=== PATIENT | female | born 1980 | race Hispanic/Latino ===

== ENCOUNTER 2020-01-29 12:05 | Emergency (ER) | payer BC ==
--- NOTE | 2020-01-29 13:59 | ER ---
Nurse's Notes [facility] Name: Jeny Boone Age: 39 yrs Sex: Female : 1980 Arrival Date: 01/29/2020 Time: 12:12 Bed 25 Private MD: Diagnosis: Cough;Myalgia;Malaise and fatigue Presentation: 01/28 12:35 Chief complaint: Patient states: Headaches, body aches, vomiting, diarrhea x at least a ca1 week. Step daughter tested positive for Covid yesterday. She came to the house Friday. Denies fever, SOB and cough. Coronavirus screen: Patient denies a cough. Patient denies shortness of breath or difficulty breathing. Patient denies measured and/or subjective temperature greater than 100.4F prior to today's visit. Patient denies travel on a cruise ship or to a country the [facility] currently lists as an affected area. Patient reports contact with known and/or suspected case of COVID-19. Surgical mask in place, instructed to keep at all times and distance self from others in the lobby. Verbalized understanding. Ebola Screen: Patient negative for fever greater than or equal to 101.5 degrees Fahrenheit, and additional compatible Ebola Virus Disease symptoms Patient denies exposure to infectious person. Patient denies travel to an Ebola-affected area in the 21 days before illness onset. No symptoms or risks identified at this time. Initial Sepsis Screen: Does the patient meet any 2 criteria? No. Patient's initial sepsis screen is negative. Does the patient have a suspected source of infection? No. Patient's initial sepsis screen is negative. Risk Assessment: Do you want to hurt yourself or someone else? Patient reports no desire to harm self or others. Onset of symptoms was January 29, 2020. 12:35 Method Of Arrival: Ambulatory ca1 12:35 Acuity: SVITLANA 4 ca1 Triage Assessment: 14:16 General: Appears in no apparent distress. Behavior is calm, cooperative. iw BODY SPECIALIST: 12:39 LMP 01/28/2020 ca1 Historical: - Allergies: 12:39 No Known Allergies; ca1 - PMHx: 12:39 Hypertension; Depression; ca1 - PSHx: 12:39 Appendectomy; ca1 - Immunization history:: Adult Immunizations up to date. - Social history:: Smoking status: Reported history of juuling and/or vaping. - Family history:: not pertinent. - Hospitalizations: : No recent hospitalization is reported. Screenin:16 Abuse screen: Denies threats or abuse. Denies injuries from another. Nutritional iw screening: No deficits noted. Tuberculosis screening: No symptoms or risk factors identified. Fall Risk None identified. Assessment: 14:00 General: Appears in no apparent distress. comfortable, Behavior is calm, cooperative. iw Pain: Denies pain. Neuro: Level of Consciousness is awake, alert, obeys commands, Oriented to person, place, time, situation, Moves all extremities. Full function. Cardiovascular: Respiratory: Respiratory effort is even, unlabored. Derm: Skin is intact, is healthy with good turgor. Musculoskeletal: Range of motion: intact in all extremities. Vital Signs: 12:35 BP 140 / 92; Pulse 85; Resp 15 S; Temp 97.5(TE); Pulse Ox 98% on R/A; Weight 83.91 kg ca1 (R); Height 5 ft. 5 in. (165.10 cm) (R); 12:35 Body Mass Index 30.79 (83.91 kg, 165.10 cm) ca1 ED Course: 12:12 Patient arrived in ED. ag5 12:38 Triage completed. ca1 12:39 Arm band placed on right wrist. ca1 13:22 Satnam Coats MD is Attending Physician. rn 14:00 Patient has correct armband on for positive identification. iw 14:16 No provider procedures requiring assistance completed. Patient did not have IV access iw during this emergency room visit. 14:17 Elena Mcmahon RN is Primary Nurse. iw Administered Medications: No medications were administered Outcome: 13:58 Discharge ordered by . rn 14:16 Discharged to home ambulatory, with family. iw 14:16 Condition: good 14:16 Discharge instructions given to patient, Following a medical screening exam, the patient was provided information regarding alternative care sites and resources available per registration personnel. 14:17 Patient left the ED. iw Signatures: Elena Mcmahon RN RN iw Satnam Coats MD MD rn Acob, Cheryl, RN RN ca1 Kolby Castañeda ag5
--- NOTE | 2020-01-29 13:59 | EDPHYS ---
Physician Documentation [facility] Name: Jeny Boone Age: 39 yrs Sex: Female : 1980 Arrival Date: 01/29/2020 Time: 12:12 Bed 25 Private MD: ED Physician Satnam Coats HPI: 01/28 13:53 This 39 yrs old Female presents to ER via Ambulatory with complaints of R/O rn COVID. 13:53 Reports + exposure to someone who has tested + for COVID recently, reports she is rn experiencing headache, fatigue, muscle aches, but not sure if related to stress. No fever. No sob.. Severity of symptoms: At their worst the symptoms were mild in the emergency department the symptoms are unchanged. The patient has not experienced similar symptoms in the past. The patient has not recently seen a physician. CARDIOVASCULAR DISEASE SPECIALIST: 12:39 LMP 01/28/2020 ca1 Historical: - Allergies: 12:39 No Known Allergies; ca1 - PMHx: 12:39 Hypertension; Depression; ca1 - PSHx: 12:39 Appendectomy; ca1 - Immunization history:: Adult Immunizations up to date. - Social history:: Smoking status: Reported history of juuling and/or vaping. - Family history:: not pertinent. - Hospitalizations: : No recent hospitalization is reported. ROS: 13:53 Constitutional: Negative for fever, chills, and weight loss, Eyes: Negative for injury, rn pain, redness, and discharge, Neck: Negative for injury, pain, and swelling, Cardiovascular: Negative for chest pain, palpitations, and edema, Respiratory: Negative for shortness of breath, wheezing, and pleuritic chest pain, Abdomen/GI: Negative for abdominal pain, and constipation, MS/Extremity: Negative for injury and deformity, Skin: Negative for injury, rash, and discoloration, Neuro: Negative for numbness, tingling, and seizure. Exam: 13:53 Constitutional: This is a well developed, well nourished patient who is awake, alert, rn and in no acute distress. Sitting reclined with legs crossed. Head/Face: Normocephalic, atraumatic. Neck: No cervical lymphadenopathy. Supple, full range of motion without nuchal rigidity, or vertebral point tenderness. No Meningismus. Cardiovascular: Regular rate and rhythm. No pulse deficits. Respiratory: Full sentences, No increased work of breathing, no retractions or nasal flaring. Abdomen/GI: soft, non-tender Skin: Warm, dry Neuro: Awake and alert, GCS 15 Vital Signs: 12:35 BP 140 / 92; Pulse 85; Resp 15 S; Temp 97.5(TE); Pulse Ox 98% on R/A; Weight 83.91 kg ca1 (R); Height 5 ft. 5 in. (165.10 cm) (R); 12:35 Body Mass Index 30.79 (83.91 kg, 165.10 cm) ca1 MDM: 13:22 Patient medically screened. rn 13:53 Differential Diagnosis COVID, viral syndrome, stress. Data reviewed: vital signs, rn nurses notes, and as a result, I will discharge patient. Counseling: I had a detailed discussion with the patient and/or guardian regarding: the historical points, exam findings, and any diagnostic results supporting the discharge/admit diagnosis, the need for outpatient follow up, to return to the emergency department if symptoms worsen or persist or if there are any questions or concerns that arise at home. ED course: Offered patient testing in form of medical screen given simply wants to know if has it, normal vitals, and does not meet inpatient criteria, patient chooses to leave and will seek drive-thru testing center to do it correctly. . Administered Medications: No medications were administered Disposition: 01/29/20 13:58 Discharged to Home as Medical Screen. Impression: Cough, Myalgia, Malaise and fatigue. - Condition is Stable. - Discharge Instructions: Cough, Adult, COVID-19. - Medication Reconciliation Form, Thank You Letter, Antibiotic Education, Prescription Opioid Use form. - Follow up: Private Physician; When: As needed; Reason: Recheck today's complaints, Re-evaluation by your physician. - Problem is new. - Symptoms are unchanged. Signatures: Elena Mcmahon RN RN Satnam Castaneda MD MD rn AcStefanie rios RN RN ca1 Corrections: (The following items were deleted from the chart) 14:17 13:58 01/29/2020 13:58 Discharged to Home as Medical Screen. Impression: Cough; iw Myalgia; Malaise and fatigue. Condition is Stable. Forms are Medication Reconciliation Form, Thank You Letter, Antibiotic Education, Prescription Opioid Use. Follow up: Private Physician; When: As needed; Reason: Recheck today's complaints, Re-evaluation by your physician. Problem is new. Symptoms are unchanged. rn
[2020-01-29 14:39] VITALS: BP 140/92; TEMP 97.5; O2SAT 98
== END 2020-01-29 14:17 | disposition home or self-care (01) ==
LOC: ER 12:05
DX: M79.10 Myalgia, unspecified site (principal); R53.81 Other malaise; R53.83 Other fatigue; I10 Essential (primary) hypertension
CPT/HCPCS: 99281